=== PATIENT | female | born 1985 | race Hispanic/Latino ===

== ENCOUNTER 2016-06-23 09:24 | Inpatient (IN) | payer OTHER ==
[~2016-06-23] VITALS: Ht 154.9 cm; Wt 83.9 kg
[~2016-06-23 09:24] MED LIST: ACETAMINOPHEN-COD #3; ALBUTEROL2.5 MG/3 M INH/SOL; BACLOFEN10 M1 PO; BENTYL20 MG PO; BENZONATATE200 MG PO; BLM PO; CLINDAMYCIN HC300 M1 PO; DILAUDID2 MG PO; DOXYCYCLINE MO100 MG PO; FLEXERIL 5MG TAB5 MG PO; FLEXERIL10 MG PO; HYDROCODONE/ACE1 TA1 PO; HYDROXYZINE50 MG PO; IBUPROFEN800 MG PO; LEVSIN/SL0.125 MG SL; MEDROL DOSEPAK1 PAC PO; MIRENA52 MG; NAPROSYN375 MG PO; NAPROSYN500 MG PO; NAPROXEN EC500 MG PO; NORCO 325 MG-51 TAB PO; NORFLEX100 MG PO; PERCOCET 325 MG1 TA2 PO; PERCOCET 5-3251 EACH PO; PHENERGAN25 M1 PO; PREDNISONE 20MG20 MG PO; PREDNISONE10 M2 PO; PREDNISONE20 M1 PO; PREDNISONE50 M1 PO; PRENATAL MULTI1 EAC2 PO; PROAIR HFA8.5 GM INH; PROMETH/CODEIN120 ML PO; PROMETHAZINE-C118 ML PO; PROMETHAZINE12.5 M2 PO; PROVENTIL HFA6.7 GM INH; ROBITUSSIN W/CO10 ML PO; TRAMADOL50 MG PO; TRAZODONE100 MG PO; TYLENOL #31 TAB PO; ULTRAM(MONOGRAP50 MG PO; VICODIN 500 MG-1 TAB PO; VICODIN5-300 PO; VISTARIL50 MG PO; XANAX0.5 MG PO; ZANTAC150 M1 PO; ZIPRASIDONE HCL40 MG PO; ZITHROMAX Z-PA250 M1 PO; ZOFRAN 4 MG TABL4 MG PO; ZOFRAN ODT4 M1 SL; ZOFRAN ODT4 MG PO; ZOFRAN4 M1 PO; ZOFRAN4 M1 SL; ZOFRAN4 M2 PO
[2016-06-23 10:33] LABS: ABSOLUTE BASOPHIL COUNT 0 /CUMM (0.0-0.2); ABSOLUTE EOSINOPHIL COUNT 0 /CUMM (0.0-0.7); ABSOLUTE GRANULOCYTE CT 6.7 /CUMM (1.4-6.5); ABSOLUTE LYMPH COUNT 1.8 /CUMM (1.2-3.4); ABSOLUTE MONOCYTE COUNT 0.6 /CUMM (0.10-0.60); BASOPHIL % 0.5 % (0.0-2.0); EOSINOPHIL % 0.5 % (0-5); GRANULOCYTE % 72.8 % (42.2-75.2); HEMATOCRIT 32.2 % (37-47); MEAN CORPUSCULAR HGB 29.3 PG (27.0-31.0); MEAN CORPUSCULAR HGB CONC 33.8 G/DL (33.0-37.0); MEAN CORPUSCULAR VOLUME 86.6 FL (81.0-99.0); MEAN PLATELET VOLUME 10.1 FL (7.4-10.4); PLATELET COUNT 219 /CUMM (130-400); RBC DISTRIBUTION WIDTH 14.8 % (11.5-14.5); RED BLOOD CELL CT 3.72 /CUMM (4.20-5.40); WHITE BLOOD CELL COUNT 9.3 /CUMM (4.8-10.8)
--- NOTE | 2016-06-23 12:36 | PN- Obstetrical ---
Subjective Subjective: WANTS EPIDURAL Objective Last 24 Hrs of Vital Signs/I&O Intake & Output 06/23 1600 06/23 0800 06/23 0000 Intake Total Output Total Balance Patient 185 lb Weight Physical Exam: PE THIN WF WITH POOR DENTITION ABD SOFT 3600 Obstetric Exam Dilation (cm): 4 Effacement (%): 80 Station: 0 Membranes: AROM Fluid: clear Multiple Gestation? No Contractions: Q 6 MINUTES Assessment/Plan Assessment/Plan ASSESS TERMPREGNANCY INDUCTION PLAN CONT PITOCIN EPIDURAL
--- NOTE | 2016-06-23 15:48 | Labor & Delivery Summary ---
Delivery Summary Vaginal Delivery: Vaginal: vertex Episiotomy/Lacerations: Episiotomy/Lacerations: 1ST DEGREE Placenta: Placenta: normal, 3 vessel, manual Anesthesia: block
[2016-06-24 00:24] VITALS: BP 118/64
[2016-06-24 08:39] LABS: ABSOLUTE BASOPHIL COUNT 0.1 /CUMM (0.0-0.2); ABSOLUTE EOSINOPHIL COUNT 0.1 /CUMM (0.0-0.7); ABSOLUTE GRANULOCYTE CT 5.7 /CUMM (1.4-6.5); ABSOLUTE LYMPH COUNT 2.1 /CUMM (1.2-3.4); ABSOLUTE MONOCYTE COUNT 0.5 /CUMM (0.10-0.60); BASOPHIL % 1.2 % (0.0-2.0); EOSINOPHIL % 0.6 % (0-5); GRANULOCYTE % 67.1 % (42.2-75.2); HEMATOCRIT 27.8 % (37-47); MEAN CORPUSCULAR HGB 29.1 PG (27.0-31.0); MEAN CORPUSCULAR HGB CONC 33.3 G/DL (33.0-37.0); MEAN CORPUSCULAR VOLUME 87.3 FL (81.0-99.0); MEAN PLATELET VOLUME 10.5 FL (7.4-10.4); PLATELET COUNT 194 /CUMM (130-400); RBC DISTRIBUTION WIDTH 14.6 % (11.5-14.5); RED BLOOD CELL CT 3.18 /CUMM (4.20-5.40); WHITE BLOOD CELL COUNT 8.6 /CUMM (4.8-10.8)
[2016-06-24] MEDS ORDERED: IBUPROFEN800 M1 PO (08:53)
[2016-09-07] MEDS ORDERED: PERCOCET 5-3251 EACH PO (16:01)
== END 2016-06-25 12:15 | DRG 560 ==
LOC: CBCO 09:24 → GNO 09:30 → CBCO 06-29 08:00
PROVIDERS: ADMIT Specialist
DX: O70.0 First degree perineal laceration during delivery (principal); Z3A.39 39 weeks gestation of pregnancy; Z37.0 Single live birth; J45.909 Unspecified asthma, uncomplicated
CPT/HCPCS: GNOS; 80307; 81001; 87086; 87389; J7120

== ENCOUNTER → 2016-07-14 | Day surgery (SDC) | payer OTHER ==
[~2016-07-14] VITALS: Ht 154.9 cm; Wt 72.6 kg
[~2016-07-14] MED LIST changes: +DILAUDID2 M1 PO; +IBUPROFEN800 M1 PO
--- NOTE | 2016-07-14 14:01 | Operative Report ---
Operative/Inv Procedure Report Surgery Date: 07/14/16 Name of Procedure: Laparoscopic tubal sterilization Pre-Operative Diagnosis: Multiparity Post-Operative Diagnosis: Same Estimated Blood Loss: scant Surgeon/Lost Charge Card Clerk: KESHAV MERCEDES MD Anesthesia: general endotracheal tube Operative/Procedure Note Note: Excisional patient was seen in the supine position after adequate anesthesia patient was dorsolithotomy position the distal fashion bottoms Examination Informed Consent Was on the [place] Insertions of down Traction Cervix Was Dilated Hart Was Placed surgical regowned and gloved. Displaced MZ was made and the abdomen prepped draped sterile fashion at the umbilicus through that a Veress needle was placed and was entirely approximately 2-1/2 L of CO2 torched illness which point a Veress needle was removed 10 mm trocar was inserted the umbilicus sheath remained place with a chief laparoscope placed under direct visualization a 5 mm port was placed 2 fingerbreadths above the symphysis pubis patient tolerated that well. At this point Greer placed 25 mm port right tube was picked up care to contribute and 7 cm tube profile left tube was picked up To its fimbriated end Pressly 7 cm tube photocoagulate pictures were taken maximum now CO2 of the abdomen the abdomen under direct visualization the incision the umbilicus was USING 0 FOR THE FASCIA 3-0 INTERRUPTED TO USE BOTH INCISION STERILE DRESSINGS WERE APPLIED DAILY CASE: CANNULA WAS REMOVED AND THE VAGINA THE PATIENT WAS AWAKENED FROM ANESTHESIA EXTUBATED TRANSFERRED FROM ROOM WITH COUNTS CORRECT Findings: Tubes and ovaries bilaterally uterus consistent with status
== END ==
LOC: STS 01:30
DX: Z30.2 Encounter for sterilization (principal)
CPT/HCPCS: 36415; J0131; J1100; J1580; J2250; J2405

== ENCOUNTER 2016-07-27 19:35 | Emergency (ER) | payer OTHER ==
[~2016-07-27] VITALS: Ht 162.6 cm; Wt 78.9 kg
[~2016-07-27 19:35] MED LIST changes: -DILAUDID2 M1 PO
[2016-07-27 19:47] VITALS: BP 119/83
--- NOTE | 2016-07-27 21:14 | ED THROAT/DENTAL COMPLAINT ---
History of Present Illness General Chief Complaint: Sore Throat, Dental Pain Stated Complaint: PT HAS TOOTH PAIN ON THE LEFT SIDE Source: patient, old records Exam Limitations: no limitations Vital Signs & Intake/Output Vital Signs & Intake/Output Vital Signs Date Time Temp Pulse Resp B/P B/P Pulse O2 O2 Flow FiO2 Mean Ox Delivery Rate 07/27 1946 98.3 91 16 119/83 99 Room Air Allergies Coded Allergies: Penicillins (Severe, ANAPHYLAXIS 01/16/16) amoxicillin (Severe, ANAPHYLAXIS 01/16/16) oxycodone (From PERCOCET) (Intermediate, HIVES 06/24/16) metoclopramide (From REGLAN) (Mild, ANXIETY 06/24/16) onion (Mild, HIVES 11/30/15) Reconcile Medications Albuterol Sulfate (Proventil Hfa) 90 MCG HFA.AER.AD 2 PUF INH Q4 PRN COUGH/ WHEEZE Hydromorphone HCl (Dilaudid) 2 MG TABLET 1 TAB PO BIDP PRN PAIN Ibuprofen 800 MG TABLET 800 MG PO Q6P PRN UTERINE CRAMPING Pnv No.122/Iron/Folic Acid ( Multi Tablet) (Unknown Strength) TABLET ( Unknown Dose) PO DAILY (Reported) Triage Note: TRIAGE: BIT DOWN ONTO FOOD AND GOT SHOOTING PAIN TO LEFT UPPER MOLAR. DENIES FEELING ANY BROKEN PIECES IN MOUTH AFTER INCIDENT. MINIMAL SWELLING OBSERVED. ICE PACK PROVIDED. VOMITED 2X FROM PAIN. TOOK IBUPROFEN 800MG APPROX 1.5 HOURS AGO WITH SLIGHT RELIEF. Triage Nurses Notes Reviewed? yes Onset: Abrupt Duration: day(s): (1), constant Timing: recent history Injury Environment: home Severity: moderate, severe Severity Numbers: 10 Modifying Factors: Worsens With: eating. Associated Symptoms: denies : No Patient currently breastfeeds: No HPI: 30-year-old female presents complaining of severe throbbing 10 out of 10 sharp left upper dental pain which she states she was eating a soft pretzel earlier today when she bit down and had a sharp shooting pain. The pain is not worse with palpation. She denies cracking the tooth no fever no chills. She's not sought care for the symptoms until now. She took IV propofol with only limited relief. Patient is not actively breast-feeding she is 1 month. No other modifying factors or associated symptoms otherwise. TRIAGE: BIT DOWN ONTO FOOD AND GOT SHOOTING PAIN TO LEFT UPPER MOLAR. DENIES FEELING ANY BROKEN PIECES IN MOUTH AFTER INCIDENT. MINIMAL SWELLING OBSERVED. ICE PACK PROVIDED. VOMITED 2X FROM PAIN. TOOK IBUPROFEN 800MG APPROX 1.5 HOURS AGO WITH SLIGHT RELIEF. (KOKI NIXON) Past History Travel History Traveled to [place] past 21 day No Medical History Any Pertinent Medical History? see below for history Neurological: NONE EENT: otitis media, TUBES PLACED Cardiovascular: NONE Respiratory: NONE Gastrointestinal: HX MILD HIATAL HERNIA Hepatic: cholecystitis Renal: NONE Musculoskeletal: L KNEE SURG 2012 Psychiatric: anxiety, depression Endocrine: NONE Blood Disorders: NONE Cancer(s): NONE MANAGER SHIP/Reproductive: TUBAL LIGATION 07/14/16 Tetanus Vaccine: 09/25/14 Surgical History Surgical History: appendectomy, cholecystectomy, LEFT KNEE SX endoscopy, colonoscopy Psychosocial History Who do you live with Family What is your primary language Tanzanian Tobacco Use: Quit >30 days ago ETOH Use: denies use Illicit Drug Use: denies illicit drug use Family History Hx Contributory? No (KOKI NIXON) Review of Systems Review of Systems Constitutional: Reports: see HPI. All Other Systems: Reviewed and Negative Comments Review of systems: See HPI, All other systems negative. Constitutional, no chills no fever, no malaise HEENT: No visual changes no sore throat no congestion Cardiovascular: No chest pain , no palpitation Skin: no rashes, no change in skin Respiratory: No dyspnea no cough no sputum GI: No nausea no vomiting, no diarrhea, : No dysuria Muscle skeletal: No joint pain, no joint swelling, no back pain, no neck pain, Neurologic: No numbness no headache Psych: No stress Heme/endocrine: No bruising Immunology: No lymphadenopathy (KOKI NIXON) Physical Exam Physical Exam General Appearance: well developed/nourished, alert, awake Mouth/Throat: dental tenderness Comments: Well-developed well-nourished patient in no apparent distress. Head/Face: Atraumatic, no maxillary/frontal sinus tenderness, no facial swelling Eyes: PERRL, EOMI Ear:External auditory canals clear Nose: atraumatic.Normal inspection Throat: Moist mucous membranes.Pharynx normal. No pharyngeal erythema/exudate seen. No stridor/drooling or assymetry. No swelling or edema. No dental trauma no broken tooth no gingival abscess Neck: Supple, no lymphadenopathy, FROM Back: FROM Cardiovascular: Regular rate and rhythms no murmurs Respiratory: No respiratory distress. Patient speaking in full complete sentences. Breath sounds clear to auscultation bilaterally: NO W/R/R Extremities: full range of motion Neuro: awake, alert, and oriented to person, place and time. There were no obvious focal neurologic abnormalities. Skin: Warm & dry;No appreciable rash on exposed skin Psych: Mood affect normal, normal memory normal judgment. Core Measures ACS in differential dx? No Severe Sepsis Present: No Septic Shock Present: No (KOKI NIXON) Progress Differential Diagnosis: aspirated tooth, carious tooth, Ludwigs angina, odontogenic abscess, dwight-tonsillar abscess, tooth fracture Plan of Care: Discussed with patient plan of care need for follow-up with dentist. I discussed with the patient at length all of their results. I had an extensive conversation regarding need for close follow up with their primary care physician this week as well as return precautions. I answered all of their questions, they feel comfortable with the plan and follow-up care. I discussed the medications that they will receive with the patient. I gave them signs and symptoms that could indicate an adverse reaction. I have advised them to limit their activities until they can see how they respond to the medication. (KOKI NIXON) Departure Departure Time of Disposition: 2112 Disposition: HOME OR SELF CARE Condition: Stable Clinical Impression Primary Impression: Pain, dental Referrals: FILEMON EDGE APRN (PCP/Family) Additional Instructions: Follow-up with your dentist this week. Dilaudid for breakthrough pain ibuprofen 800 mg every 8 hours use caution as the Dilaudid is a narcotic highly addictive no driving or drinking alcohol while taking this was sent to [facility] Departure Forms: Customer Survey General Discharge Information Prescriptions: Current Visit Scripts Hydromorphone HCl (Dilaudid) 1 TAB PO BIDP PRN PAIN #8 TAB (KOKI NIXON) PA/GLASS ROBOT OPERATOR Co-Sign Statement Statement: ED Attending supervision documentation- [] I saw and evaluated the patient. I have also reviewed all the pertinent lab results and diagnostic results. I agree with the findings and the plan of care as documented in the PA's/GLASS ROBOT OPERATOR's documentation. [X] I have reviewed the ED Record and agree with the PA's/GLASS ROBOT OPERATOR's documentation. [] Additions or exceptions (if any) to the PAs/GLASS ROBOT OPERATOR's note and plan are summarized below: [] (NATHAN HORTON,JESSY)
[2016-07-27] MEDS ORDERED: DILAUDID2 M1 PO (21:15)
[2016-09-07] MEDS ORDERED: PERCOCET 5-3251 EACH PO (16:01)
== END 2016-07-27 21:24 ==
LOC: ERH 19:35
DX: K08.89 Other specified disorders of teeth and supporting structures (principal)

== ENCOUNTER → 2017-03-16 | Day surgery (SDC) | payer OTHER ==
[~2017-03-16] VITALS: Ht 157.5 cm; Wt 86.2 kg
[~2017-03-16] MED LIST changes: +DILAUDID2 M1 PO
--- NOTE | 2017-03-16 14:29 | Operative Report ---
Operative/Inv Procedure Report Surgery Date: 03/16/17 Name of Procedure: D&C cryoablation Pre-Operative Diagnosis: Menorrhagia Post-Operative Diagnosis: Same Estimated Blood Loss: less than 50ml Surgeon/Broadcast Field Supervisor: Suzanne Carrion MD Anesthesia: moderate sedation Operative/Procedure Note Note: Gen. patient was taken the operating room placed prone position after adequate induction general anesthesia the patient was placed in dorsolithotomy the vagina from dorsal fashion bladder was catheterized examination under anesthesia performed a single-tooth tenaculum was placed on the anterior lip of the cervix after the bladder had been catheterized at this point cervix was side 29 Hegar to allow for the insertion of a sharp curet sharp curettage of the endometrial lining was performed sharp curettage and cervical lining was performed 2 specimens were sent to pathology at this point the bladder was filled approximately 250 mL normal saline under ultrasound guidance I precooled on her option probe was placed into the cervix under direct ultrasound guidance and 8 minutes on each side nice ice ball was developed the probe was heated and removed at this point advancements removed from the vagina the patient was returned spine position she was awakened from anesthesia and transferred recovery room awake alert with counts correct
--- NOTE | 2017-03-17 10:12 | ULTRASOUND REPORT ---
EXAMINATION: Intraoperative ultrasound CLINICAL INFORMATION: 31-year-old female with metromenorrhagia. COMPARISON: Transvaginal ultrasound 11/01/2015 TECHNIQUE: Intraoperative ultrasound was provided for use by Dr. Carrion. A total of 6 images were saved to PACS. FINDINGS\E\IMPRESSION: Intraoperative ultrasound provided for use by Dr. Crarion. A radiologist was not present during imaging. Please see operative note for detailed findings.
== END ==
LOC: STS 02:14 → XRY 10:30
DX: N92.0 Excessive and frequent menstruation with regular cycle (principal)
CPT/HCPCS: 76998; J0131; J2250

== ENCOUNTER 2017-06-27 19:40 | Emergency (ER) | payer OTHER ==
[~2017-06-27] VITALS: Ht 154.9 cm; Wt 86.2 kg
[2017-06-27] MEDS ORDERED: DOXYCYCLINE HY100 M4 PO ×2 (22:18→22:32)
[2017-06-27] MEDS ORDERED: CHERATUSSIN AC118 M1 PO ×2 (22:18→22:32)
[2017-06-27] MEDS ORDERED: PREDNISONE50 M1 PO ×2 (22:19→22:32)
--- NOTE | 2017-06-27 22:19 | ED DYSPNEA/ASTHMA COMPLAINT ---
History of Present Illness General Chief Complaint: General Adult Stated Complaint: "BEEN COUGHING FOR 3 WEEKS" PER PT Source: patient Exam Limitations: no limitations Vital Signs & Intake/Output Vital Signs & Intake/Output Vital Signs Date Time Temp Pulse Resp B/P B/P Pulse O2 O2 Flow FiO2 Mean Ox Delivery Rate 06/279 Room Air 06/27 1945 97.0 115 18 150/85 100 Room Air Allergies Coded Allergies: Penicillins (Severe, ANAPHYLAXIS 09/07/16) amoxicillin (Severe, ANAPHYLAXIS 09/07/16) metoclopramide (From REGLAN) (Mild, ANXIETY 09/07/16) onion (Mild, HIVES 09/07/16) Reconcile Medications Codeine Phosphate/Guaifenesi (Cheratussin AC Syrup) 10 MG-100 MG/5 ML LIQUID 10 ML PO Q6H PRN PAIN/COUGH Codeine Phosphate/Guaifenesi (Cheratussin AC Syrup) 10 MG-100 MG/5 ML LIQUID 10 ML PO Q6H PRN COUGH Doxycycline Hyclate 100 MG TABLET 1 TAB PO BID BRONCHITIS Doxycycline Hyclate 100 MG TABLET 1 TAB PO BID BRONCHITIS Oxycodone HCl/Acetaminophen (Percocet 5-325 MG Tablet) 5 MG-325 MG TABLET 1 TAB PO BID PRN dental pain Prednisone 50 MG TABLET 1 TAB PO DAILY bronchitis Prednisone 50 MG TABLET 1 TAB PO DAILY BRONCHITIS Triage Note: PT TO ED C/O COUGH FOR 3 WEEKS. O2 SAT 100% RA. 'I CAN'T SLEEP, I WAKE UP COUGHING" "AND THEN MY 2 YEAR OLD WAKES UP" HAS BEEN USING ALBUTEROL INH WITH NO RELIEF. LAST NEBULIZER LAST NIGHT. Triage Nurses Notes Reviewed? yes Onset: Abrupt Duration: week(s): (2), constant, getting worse Timing: single episode today Severity: moderate, severe Activities at Onset: none Prior Episodes/Possible Cause: occasional episodes Associated Symptoms: anxiety, cough, insomnia, lightheadedness, wheezing LMP (ages 10-50): unknown : No Patient currently breastfeeds: No HPI: 31-year-old female with history of asthma presents for evaluation of cough, congestion, wheezing and insomnia. Patient states that symptoms going on for 2 weeks. She reports a cough productive of yellow sputum that is worse at night causing difficult sleeping. She states that she's been using her albuterol inhaler without any improvement. No hemoptysis lower extremity edema or recent surgery recent trauma. No history of DVT. She is a former smoker. No fever. (Candido Ruvalcaba) Past History Travel History Traveled to [place] past 21 day No Medical History Any Pertinent Medical History? 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 No (Candido Ruvalcaba) Review of Systems Review of Systems Constitutional: Reports: no symptoms. EENTM: Reports: no symptoms. Respiratory: Reports: see HPI, cough, short of breath, sputum production, wheezing. Cardiovascular: Reports: no symptoms. GI: Reports: no symptoms. Genitourinary: Reports: no symptoms. Musculoskeletal: Reports: no symptoms. Skin: Reports: no symptoms. Neurological/Psychological: Reports: no symptoms. Hematologic/Endocrine: Reports: no symptoms. Immunologic/Allergic: Reports: no symptoms. All Other Systems: Reviewed and Negative (Candido Ruvalcaba) Physical Exam Physical Exam General Appearance: well developed/nourished, no apparent distress, alert, awake Head: atraumatic, normal appearance Eyes: Bilateral: normal appearance, PERRL, EOMI. Ears, Nose, Throat: normal pharynx, hearing grossly normal, nasal congestion Neck: normal inspection, supple, full range of motion Respiratory: chest non-tender, no respiratory distress, rhonchi, wheezing Cardiovascular: regular rate/rhythm, normal peripheral pulses Peripheral Pulses: 2+ radial (R), 2+ radial (L) Gastrointestinal: soft, non-tender Extremities: normal inspection, normal range of motion, no edema Neurologic/Psych: no motor/sensory deficits, awake, alert, oriented x 3, normal gait Skin: intact, normal color, warm/dry Lymphatic: no anterior cervical tootie Core Measures ACS in differential dx? No CVA/TIA Diagnosis No Sepsis Present: No Sepsis Focused Exam Completed? No (Candido Ruvalcaba) Progress Differential Diagnosis: asthma, AMI, bronchitis, CHF, COPD, pulmonary embolism, pneumonia, unstable angina Plan of Care: Patient seen and evaluated. She is reporting cough congestion and rhinorrhea wheezing and insomnia over the past 2 weeks. On exam she has diffuse wheezing and rhonchi. No cyanosis or hypoxia. Patient is medicated with a DuoNeb and is feeling better. She be treated for acute bronchitis. Continue to use albuterol inhaler. Prednisone 50 mg 5 days. Cheratussin for cough at night. Doxycycline. Discussed return precautions in detail. Follow-up with primary care. She agrees the plan. Initial ED EKG: none (Candido Ruvalcaba) Departure Departure Disposition: HOME OR SELF CARE Condition: Stable Clinical Impression Primary Impression: Acute bronchitis Qualifiers: Bronchitis organism: unspecified organism Qualified Code: J20.9 - Acute bronchitis, unspecified Referrals: Maty Mclain APRN (PCP/Family) Additional Instructions: Rest and drink plenty of fluids. Take antibiotics and steroids as directed for the full course. Tylenol ibuprofen as needed for pain. Cheratussin as needed for cough this may cause drowsiness. Make a follow-up with your primary care doctor or the next few days for recheck. Monitor symptoms return with any concerns. Departure Forms: Customer Survey General Discharge Information Prescriptions: Current Visit Scripts Codeine Phosphate/Guaifenesi (Cheratussin AC Syrup) 10 ML PO Q6H PRN PAIN/COUGH #240 ML Doxycycline Hyclate 1 TAB PO BID #14 TAB Prednisone 1 TAB PO DAILY #5 TAB Doxycycline Hyclate 1 TAB PO BID #14 TAB Prednisone 1 TAB PO DAILY #5 TAB Codeine Phosphate/Guaifenesi (Cheratussin AC Syrup) 10 ML PO Q6H PRN COUGH #240 ML (Candido Ruvalcaba) PA/ON CALL Co-Sign Statement Statement: ED Attending supervision documentation- [] I saw and evaluated the patient. I have also reviewed all the pertinent lab results and diagnostic results. I agree with the findings and the plan of care as documented in the PA's/ON CALL's documentation. [x] I have reviewed the ED Record and agree with the PA's/ON CALL's documentation. [] Additions or exceptions (if any) to the PAs/ON CALL's note and plan are summarized below: [] (Kiran Horowitz DO) Critical Care Note Critical Care Note Critical Care Time: non-applicable (Chandler COLLINS,Candido)
[2017-06-27 22:36] VITALS: BP 133/85
== END 2017-06-27 22:37 ==
LOC: ERH 19:40
DX: J20.9 Acute bronchitis, unspecified (principal); Z87.891 Personal history of nicotine dependence
CPT/HCPCS: 1263